=== PATIENT | male | born 1980 | race Caucasian/White ===

== ENCOUNTER 2017-03-02 14:11 | Emergency (ER) | payer OTHER, SELFPAY ==
[2017-03-02 14:59] LABS: #Basophils 0.1 thou/uL (0.0-0.2); #Eosinphils 0.1 thou/uL (0.0-0.7); #Lymphocytes 2.7 thou/uL (1.20-3.40); #Monocytes 0.9 thou/uL (0.11-0.59); #Neutrophils 3.2 thou/uL (1.40-6.50); %Basophils 0.8 % (0.0-1.0); %Eosinophils 1.9 % (0.0-10.0); %Lymphocytes 38.6 % (21.0-51.0); %Monocytes 12.5 % (0.0-10.0); Hematocrit 43.2 % (42.0-52.0); Mean Platelet Volume 8.1 fL (7.4-10.4); White Blood Cell (WBC) Count 6.9 thou/uL (4.8-10.8)
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
[2017-03-02 15:18] LABS: ALT (SGPT) 37 U/L (8-55); AST (SGOT) 24 U/L (5-34); Alkaline Phosphatase 85 U/L (40-150); Anion Gap 12 mmol/L (10-20); BUN (Urea Nitrogen) 15 mg/dL (8.9-20.6); Bilirubin, Total 1.3 mg/dL (0.2-1.2); CK (CPK) 297 U/L (30-200); Calc. Creatinine Clearance 0 mL/min (70-130); Calcium 9.1 mg/dL (7.8-10.44); Carbon Dioxide 24 mmol/L (22-29); Chloride 103 mmol/L (98-107); Estimated GFR-MDRD 66; Globulin 2.5 g/dL (2.4-3.5); Lipase 27 U/L (8-78); Protein, Total 6.6 g/dL (6.0-8.3)
[2017-03-02] MEDS ORDERED: Bacitracin Zinc 1 Packet ONE (16:02)
--- NOTE | 2017-03-05 06:42 | EKG ---
Test Reason : Blood Pressure : / mmHG Vent. Rate : 079 BPM Atrial Rate : 079 BPM P-R Int : 158 ms QRS Dur : 096 ms QT Int : 382 ms P-R-T Axes : 009 -47 030 degrees QTc Int : 438 ms Normal sinus rhythm with sinus arrhythmia Left anterior fascicular block Minimal voltage criteria for LVH, may be normal variant Abnormal ECG No change from 02/2011 Confirmed by JARROD HOLLIS, RUY ([id number]), video news editor JUDE LI ([id number]) on 03/05/2017 6:41:51 AM Referred By: Confirmed By:RUY GARAY MD
== END 2017-03-02 16:25 | disposition home or self-care (01) ==
LOC: ERS 14:11
DX: S40.212A Abrasion of left shoulder, initial encounter (principal); J45.909 Unspecified asthma, uncomplicated; F31.9 Bipolar disorder, unspecified; F17.210 Nicotine dependence, cigarettes, uncomplicated; V89.2XXA Person injured in unspecified motor-vehicle accident, traffic, initial encounter
CPT/HCPCS: 36415; 71010; 80053; 80307; 82550; 83690; 85025; 93005

== ENCOUNTER 2017-06-02 02:09 | Emergency (ER) | payer SELFPAY ==
[2017-06-02] MEDS ORDERED: Albuterol Sulfate 2.5 mg/0.5 ml Neb ONE (02:32)
[2017-06-02] MEDS ORDERED: predniSONE 20 MG TAB ONE (02:33)
--- NOTE | 2017-06-02 08:50 | RAD ---
TWO VIEW CHEST: INDICATIONS: Cough and wheezing. COMPARISON: 03/02/2017 FINDINGS: There is no evidence of consolidation, effusion, or discrete pneumothorax. The cardiac silhouette is within normal limits in size. The osseous structures are intact. IMPRESSION: No focal consolidation. POS: [facility]
== END 2017-06-02 03:20 | disposition home or self-care (01) ==
LOC: SCSER 02:09
DX: J18.9 Pneumonia, unspecified organism (principal); L03.317 Cellulitis of buttock; J45.909 Unspecified asthma, uncomplicated; F31.9 Bipolar disorder, unspecified; F17.210 Nicotine dependence, cigarettes, uncomplicated
CPT/HCPCS: 71046; 87804; 99285; J7506; J7611

== ENCOUNTER 2019-04-13 10:28 | Emergency (ER) | payer SELFPAY | END 2019-04-13 11:42 | disposition home or self-care (01) | LOC: ERS 10:28 | DX: L05.91 Pilonidal cyst without abscess (principal); J45.909 Unspecified asthma, uncomplicated; F31.9 Bipolar disorder, unspecified; F17.220 Nicotine dependence, chewing tobacco, uncomplicated; Z79.82 Long term (current) use of aspirin | CPT/HCPCS: 99283 ==